=== PATIENT | female | born 1945 | race Caucasian/White ===

== ENCOUNTER 2018-04-02 07:36 | Emergency (ER) | payer MEDICARE ==
[2018-04-02 07:51] VITALS: PULSE 71; O2SAT 99
--- NOTE | 2018-04-02 08:12 | ERPHSYRPT ---
- History of Present Illness Time Seen by Provider: 04/02/18 08:07 Source: patient Exam Limitations: no limitations Patient Subjective Stated Complaint: left knee/potts pain for the past 3 weeks Triage Nursing Assessment: Pt c/o of left knee pain and left potts pain, reports that the knee has hurt off and on for years, she hit her potts on a wooden box and has now radiating pain that goes from her potts to her knee, rates pain 5/10 , pulses normal, walks with a crooked gait, doesn't appear to be in any distress Physician History: 73 y/o white female presents with left lower leg pain. injured 3 weeks ago. wants an xray. pain radiates into left knee. pt has chronic left knee pain. Method of Injury: direct blow Occurred: other (3 weeks ago) Quality: constant, aching Severity of Pain-Max: mild Severity of Pain-Current: mild Lower Extremities Pain: leg: left Modifying Factors: Improves With: movement Associated Symptoms: none Allergies/Adverse Reactions: Phenothiazines Allergy (Severe, Verified 04/02/18 07:51) full body muscle contraction/ severe dystonia Sulfa (Sulfonamide Antibiotics) Allergy (Intermediate, Verified 04/02/18 07:51) Hives nickel Allergy (Mild, Verified 04/02/18 07:51) Rash strawberry Allergy (Mild, Verified 04/02/18 07:51) Itching tree nut Allergy (Mild, Verified 04/02/18 07:51) Itching naproxen [From Naprosyn] Adverse Reaction (Mild, Verified 04/02/18 07:51) Headache Home Medications: Calc/D3/Mag/Zn/Temo/Melvin/Elbe [Calcium 600 mg Plus Vit D Tab] 1 each PO DAILY 08/28/14 [History] Calcium/Magnesium/Vit D3 [Calcium 500 mg Tablet] 600 each PO DAILY 08/28/14 [ History] Cholecalciferol (Vitamin D3) [Vitamin D3] 2,000 unit PO DAILY 08/28/14 [History] Chromium Picolinate 200 mcg PO DAILY 08/28/14 [History] Cyanocobalamin (Vitamin B-12) [Vitamin B-12] 1,000 mcg PO DAILY 08/28/14 [ History] Lisinopril 20 mg [Zestril 20 MG] 40 mg PO DAILY 08/28/14 [History] Metoprolol Tartrate 12.5 mg PO BID 08/28/14 [History] Multivitamin [Multi-Vitamin Daily] 1 each PO DAILY 08/28/14 [History] [place]-3 Fatty Acids/Fish Oil [Fish Oil 1,000 mg Capsule] 4 g PO DAILY 08/28 [History] Omeprazole 40 mg DAILY 08/28/14 [History] Methotrexate Sodium [Methotrexate] 15 mg PO WEEKLY 09/08/14 [History] Fluticasone Propionate [Flonase NASAL] 1 inh NS DAILY 04/02/18 [History] Leucovorin Calcium 5 mg PO WEEKLY 04/02/18 [History] Loratadine 10 mg [Claritin 10 mg] 10 mg PO DAILY 04/02/18 [History] Meloxicam 15 mg PO DAILY 04/02/18 [History] Hx Influenza Vaccination/Date Given: Yes (2013) Hx Pneumococcal Vaccination/Date Given: Yes (2014) - Review of Systems Constitutional: No Symptoms Eyes: No Symptoms Ears, Nose, & Throat: No Symptoms Respiratory: No Symptoms Cardiac: No Symptoms Abdominal/Gastrointestinal: No Symptoms Genitourinary Symptoms: No Symptoms Musculoskeletal: Other (left lowr leg pain) Skin: No Symptoms Neurological: No Symptoms Psychological: No Symptoms Endocrine: No Symptoms Hematologic/Lymphatic: No Symptoms Immunological/Allergic: No Symptoms All Other Systems: Reviewed and Negative - Past Medical History Pertinent Past Medical History: Yes Neurological History: No Pertinent History ENT History: Cataracts Cardiac History: Hypertension Respiratory History: COPD Endocrine Medical History: No Pertinent History Musculoskeletal History: Osteoporosis, Rheumatoid Arthritis, Other GI Medical History: Hemorrhoids History: No Pertinent History Psycho-Social History: No Pertinent History Female Reproductive Disorders: No Pertinent History Other Medical History: spinotholosis,. psoriatic arthritis - Past Surgical History Past Surgical History: Yes Neuro Surgical History: No Pertinent History Cardiac: No Pertinent History Respiratory: No Pertinent History Gastrointestinal: Appendectomy Genitourinary: No Pertinent History Musculoskeletal: Orthopedic Surgery Female Surgical History: Tubal Ligation Other Surgical History: tonsellectomy. left wrist ganglion cyst - Social History Smoking Status: Current every day smoker How long have you smoked: 52 years Exposure to second hand smoke: Yes Drug Use: none Patient Lives Alone: Yes - Female History Hx Now: No - Nursing Vital Signs Nursing Vital Signs: Initial Vital Signs Temperature 97.4 F 04/02/18 07:41 Pulse Rate 71 04/02/18 07:41 Blood Pressure 157/64 04/02/18 07:41 O2 Sat by Pulse Oximetry 99 04/02/18 07:41 Pain Scale Pain Intensity 5 - Physical Exam General Appearance: no apparent distress, alert, anxiety Eyes, Ears, Nose, Throat Exam: normal ENT inspection, moist mucous membranes Neck Exam: normal inspection, non-tender, supple, full range of motion Cardiovascular/Respiratory Exam: chest non-tender, normal breath sounds, regular rate/rhythm, no respiratory distress Gastrointestinal/Abdominal Exam: non-tender, soft, No tenderness Back Exam: normal inspection, normal range of motion, No CVA tenderness, No vertebral tenderness Hips Exam: bilateral: non-tender, normal inspection, normal range of motion, no evidence of injury Legs Exam: right leg: non-tender, normal inspection (1cm healing eschar. no infection.), no evidence of injury, left leg: normal range of motion Knees Exam: bilateral knee: non-tender, normal inspection, normal range of motion, no evidence of injury Ankle Exam: bilateral ankle: non-tender, normal inspection, normal range of motion, no evidence of injury Foot Exam: bilateral foot: non-tender, normal inspection, normal range of motion , no evidence of injury Neuro/Tendon Exam: normal sensation, normal motor functions, normal tendon functions, responds to pain Mental Status Exam: alert, oriented x 3, cooperative Skin Exam: normal color, warm, dry, other (escahr left lower leg as above) SpO2 Interpretation: normal SpO2: 99 O2 Delivery: Room Air - Course Nursing assessment & vital signs reviewed: Yes Ordered Tests: Active Orders 24 hr Category Date Time Status LOWER LEG Stat Exams 04/02/18 08:12 Taken - Progress Progress: pain not gone completely, re-examined Progress Note: 04/02/18 08:51 xray left lower leg-no acute fx or dislocation Counseled pt/family regarding: diagnosis, need for follow-up, rad results - Departure Time of Disposition: 08:51 Departure Disposition: Home Clinical Impression: Contusion of leg, left Condition: Stable Critical Care Time: No Referrals: SKIP PICKENS MD [Primary Care Provider] - Additional Instructions: ice pack to area 3 times daily for 2 days. follow up with primary doctor for further management Prescriptions: Naproxen 500 mg [Naprosyn 500 MG] 500 mg PO BID #10 tablet
[2018-04-02 08:53] VITALS: BP 122/40
--- NOTE | 2018-04-02 09:34 | XRAY ---
Indication: Pain following injury 3 weeks ago. Comparison: None 2 views of the left lower leg demonstrates tiny suprapatellar spurring. No other bony, articular, or soft tissue abnormalities.
== END 2018-04-02 09:16 | disposition home or self-care (01) ==
LOC: ED 07:36
DX: S80.12XA Contusion of left lower leg, initial encounter (principal); Y29.XXXA Contact with blunt object, undetermined intent, initial encounter; M25.562 Pain in left knee; M79.662 Pain in left lower leg; I10 Essential (primary) hypertension; J44.9 Chronic obstructive pulmonary disease, unspecified; M81.0 Age-related osteoporosis without current pathological fracture; M06.9 Rheumatoid arthritis, unspecified
CPT/HCPCS: 73590; 99283

== ENCOUNTER 2021-05-12 06:26 | Day surgery (SDC) | payer MEDICARE ==
[2021-05-12] MEDS ORDERED: Lactated Ringers 1,000 ML IV ONE (06:56)
[2021-05-12] MEDS ORDERED: Xylocaine-Mpf 2% 5 Ml Vial ONE (07:12)
[2021-05-12] MEDS ORDERED: DIPRIVAN 200 MG/20 ML IV ONE ×2 (07:12→07:35)
[2021-05-12] MEDS ORDERED: Versed 2 MG/2 ML Injection ONE (07:13)
[2021-05-12] MEDS ORDERED: Lactated Ringers 1,000 ML IV SCH (08:00)
[2021-05-12 08:21] VITALS: O2SAT 98
[2021-05-12 09:07] VITALS: BP 164/75; PULSE 74
--- NOTE | 2021-05-12 10:33 | OP ---
SURGERY DATE/TIME: 05/12/2021 0713 PREOPERATIVE DIAGNOSES: 1) Abdominal pain. 2) Change in bowel habits. POSTOPERATIVE DIAGNOSES: 1) Normal EGD. 2) Normal colon but incomplete exam. PROCEDURES: 1) EGD. 2) Colonoscopy. SURGEON: Sukhjinder Banda M.D. ANESTHESIA: MAC by Julio C Whitman CRNA. ESTIMATED BLOOD LOSS: None. SPECIMENS: None. DESCRIPTION OF PROCEDURE: After informed written consent was obtained, the patient was taken to the endoscopy suite. She was placed in the left lateral decubitus position and a bite block inserted. Anesthesia was titrated to desired level of consciousness and the endoscope was passed through the posterior oropharynx and under direct visualization the esophagus was traversed. The esophageal mucosa and gastroesophageal junction was within normal limits. The stomach had a normal rugated gastric mucosa free of any lesions or defects. Pylorus was traversed and the first and second portions of the duodenum had a normal mucosal appearance. Upon withdrawal again all mucosal structures were inspected and noted to have no visible abnormality. The scope was removed and the scopes were switched. Digital rectal exam showed normal sphincter tone and no internal lesions. The scope was inserted in the rectum and sequentially the entire colonic mucosa was traversed to the level of the hepatic flexure. There was significant difficulty navigating the flexure as position changes and assistance with abdominal pressure yielded no improvement in the ability to pass that area. There were no obvious lesions that could be seen in this region and due to failure of maneuvers to traverse the corner at the hepatic flexure, the decision was made to withdrawal the scope. Again, there were no mucosal abnormalities upon withdrawal. No inflammation. No bleeding. No polyps or other lesions. Prior to withdrawal retroflexion showed mild internal hemorrhoids but no other lesions. The scope was removed. The patient was transferred to the recovery room in good condition.
== END 2021-05-12 08:45 | disposition home or self-care (01) ==
LOC: SDC 06:26
PROVIDERS: ATTEND Family Medicine
DX: R10.9 Unspecified abdominal pain (principal); R19.4 Change in bowel habit; K64.8 Other hemorrhoids
CPT/HCPCS: 99100; J2250; J2704